=== PATIENT | male | born 1960 | race Hispanic/Latino ===

== ENCOUNTER 2020-05-28 13:38 | Emergency (ER) | payer SELFPAY ==
--- NOTE | 2020-05-28 14:12 | RAD ---
Chest AP view INDICATION: Low left-sided anterior chest wall tenderness with movement after mechanical fall 4 days ago COMPARISON: February 28, 2010 FINDINGS: Lungs: The lungs are clear Cardiac silhouette: The cardiomediastinal silhouette appears within normal limits. Pulmonary vasculature: Normal Pleural spaces: No pleural effusion or pneumothorax is demonstrated. Upper abdomen: No abnormality seen. Osseous structures: No acute osseous abnormality. Additional findings: None. IMPRESSION: No acute cardiopulmonary abnormality.
--- NOTE | 2020-05-28 15:01 | RAD ---
LEFT RIB SERIES INDICATION: Left sided rib pain. COMPARISON: Chest radiograph dated 05/28/2020 FINDINGS: Visualized Left Chest: Visualized left lung is clear. No pneumothorax. Left Ribs: There is a minimally displaced posterior lateral left ninth rib fracture. No additional di splaced fractures evident. IMPRESSION: Minimally displaced posterior lateral left ninth rib fracture.
[2020-05-28] MEDS ORDERED: Ibuprofen 800 MG TAB ONE (15:08)
== END 2020-05-28 15:15 | disposition home or self-care (01) ==
LOC: MADERS 13:38
DX: S22.32XA Fracture of one rib, left side, initial encounter for closed fracture (principal); I10 Essential (primary) hypertension; W17.89XA Other fall from one level to another, initial encounter
CPT/HCPCS: 71045